=== PATIENT | male | born 1955 | race Caucasian/White ===

== ENCOUNTER → 2017-02-22 | Outpatient (CLI) | payer MEDICARE ==
[2017-02-22 12:11] LABS: ABG BASE EXCESS 2.3 MMOL/L (-2.5-2.5); ABG HCO3 27 MMOL/L (23-27); ABG OXYGEN SATURATION 95 % (94-100); ABG PCO2 46 MMHG (35-45); ABG PH 7.39 (7.37-7.43); ABG PO2 65 MMHG (79-93); ABG TCO2 28.4 MMOL/L (21.0-31.0); ALLENS TEST YES-POS; PATIENT TEMP 97.9
== END ==
LOC: LAB 11:18
PROVIDERS: ATTEND Nurse Practitioner Family
DX: R06.00 Dyspnea, unspecified (principal); J44.9 Chronic obstructive pulmonary disease, unspecified
CPT/HCPCS: 71020; 82805

== ENCOUNTER 2017-03-05 20:21 | Outpatient (CLI) | payer MEDICARE | END 2017-03-06 06:34 | disposition home or self-care (01) | LOC: SLEEP 20:21 → EDUNIT# 21:00 → SLEEP 03-06 06:34 | PROVIDERS: ATTEND Nurse Practitioner Family | DX: G47.33 Obstructive sleep apnea (adult) (pediatric) (principal); G47.10 Hypersomnia, unspecified; G47.50 Parasomnia, unspecified; R06.00 Dyspnea, unspecified; G47.34 Idiopathic sleep related nonobstructive alveolar hypoventilation | CPT/HCPCS: 95810 ==

== ENCOUNTER → 2017-03-09 | Outpatient (CLI) | payer MEDICARE ==
[~2017-03-09] MED LIST: RT-ALBUTEROL SULF 2.5 MG/3 ML PRE-MIX VIAL IH ONE
== END ==
LOC: EDUNIT# 03-02 13:00 → RT 12:42
PROVIDERS: ATTEND Nurse Practitioner Family
DX: J44.9 Chronic obstructive pulmonary disease, unspecified (principal); G47.34 Idiopathic sleep related nonobstructive alveolar hypoventilation
CPT/HCPCS: 94060; 94640; 94726; 94729

== ENCOUNTER 2017-04-13 07:39 | Outpatient (CLI) | payer MEDICARE | END 2017-04-13 18:30 | disposition home or self-care (01) | LOC: SLEEP 07:39 | PROVIDERS: ATTEND Nurse Practitioner Family | DX: G47.33 Obstructive sleep apnea (adult) (pediatric) (principal); G47.9 Sleep disorder, unspecified; G47.50 Parasomnia, unspecified; G47.10 Hypersomnia, unspecified ==

== ENCOUNTER → 2017-08-02 | Outpatient (CLI) | payer MEDICARE | LOC: PULM 13:51 | PROVIDERS: ATTEND Nurse Practitioner Family | DX: J44.9 Chronic obstructive pulmonary disease, unspecified (principal); R53.83 Other fatigue ==

== ENCOUNTER → 2019-10-26 | Outpatient (CLI) | payer MEDICARE ==
--- NOTE | 2019-10-26 12:59 | Diagnostic Imaging Report ---
CT Lung Screening INDICATION: Patient has 30 pack year smoking history cessation in 2002 for low-dose CT screening. Its compared with an outside routine chest CT dated 08/16/2018. TECHNIQUE: Noncontrast, low-dose CT imaging performed according to the lung cancer screening protocol. Auto Exposure Controls were utilize during the CT exam to meet ALARA standards for radiation dose reduction. COMPARISON: FINDINGS:Few scattered sub-centimeters subpleural scars are chronic. Some partial atelectasis in the shirley-fissural and basilar portions of the lingular segment left upper lobe unchanged. No new dominant or suspicious lung mass. Heterogeneous air trapping and some centrilobular emphysema most pronounced in the apices chronic. No effusion. No pneumothorax. No acute chest wall pathology. IMPRESSION:No suspicious lung mass. COPD, zones of partial atelectasis and mild shirley-fissural scarring chronic. No acute appearing abnormality. Follow-up low-dose CT screening in one year's time recommended. LUNG-RADS CATEGORY:Category 2 benign findings as described MODIFIER: OTHER SIGNIFICANT FINDINGS: Dictated by: Dictated on workstation # [id number]
== END ==
LOC: RAD 11:31
PROVIDERS: ATTEND Nurse Practitioner Family
DX: Z12.2 Encounter for screening for malignant neoplasm of respiratory organs (principal); J44.9 Chronic obstructive pulmonary disease, unspecified; Z87.891 Personal history of nicotine dependence

== ENCOUNTER → 2020-12-22 | Outpatient (CLI) | payer MEDICARE ==
--- NOTE | 2020-12-22 15:58 | Diagnostic Imaging Report ---
EXAMINATION: CT chest without contrast (lung screening). TECHNIQUE: Multiple contiguous axial images were obtained through the chest without the use of intravenous contrast according to lung cancer screening protocol. All CT scans use one or more of the following dose optimizing techniques: automated exposure control, MA and/or KvP adjustment based on patient size and exam type or iterative reconstruction. HISTORY: 30 pack year history of smoking. COMPARISON: CT chest 10/26/2019. FINDINGS: Thyroid: The thyroid is normal. Mediastinum: Heart size is normal without significant pericardial effusion. Calcifications of the aorta and coronary vessels. Thoracic aorta is normal in caliber. No suspicious lymphadenopathy. Lungs and airways: Emphysematous changes in lungs without consolidation, pleural effusion, or pneumothorax. There is scarring within the lingula and medial right middle lobe. No new suspicious pulmonary nodule. The airways are normal. Upper abdomen: The subphrenic structures are normal. Musculoskeletal: Degenerative changes of the spine without suspicious osseous lesion or compression fracture. IMPRESSION: 1. No new suspicious pulmonary nodules. Recommend continued annual low-dose CT screening. 2. COPD. LUNG-RADS CATEGORY: 2 MODIFIER: S Dictated by: Dictated on workstation # [id number]
== END ==
LOC: RAD 11:45
PROVIDERS: ATTEND Nurse Practitioner Family
DX: Z12.2 Encounter for screening for malignant neoplasm of respiratory organs (principal); J44.9 Chronic obstructive pulmonary disease, unspecified; Z87.891 Personal history of nicotine dependence
CPT/HCPCS: 71271